=== PATIENT | male | born 1975 | race Hispanic/Latino ===

== ENCOUNTER → 2018-01-13 | Outpatient (CLI) | payer BC ==
[~2018-01-13] MED LIST: TADALAFIL
--- NOTE | 2018-01-13 22:39 | Diagnostic Imaging Report ---
Examination: MRI SPINE CERVICAL WITHOUT CONTRAST History: Right shoulder pain and numbness. Comparison studies: None Technique: Sagittal T1, T2 and IR, axial T2 and axial gradient echo intravenous contrast: None Findings: Alignment: Straightening of normal lordosis. No scoliosis. Cervicomedullary junction: No abnormalities. Patent foramen magnum. Soft tissues: No T2 hyperintense inflammatory changes. Spinal cord: Normal in size and signal from the foramen magnum through T1. Vertebrae: No fractures, infection or neoplasm. Type II Modic changes of the inferior and superior endplates of C6 and C7, respectively. Degenerative changes: C1-C2: No abnormalities. C2-C3: No abnormalities. C3-C4: No abnormalities. C4-C5: Diffuse disc osteophyte complex and bilateral uncovertebral arthropathy results in mild bilateral neural foraminal narrowing. No canal stenosis.. C5-C6: Asymmetric left disc osteophyte complex and left uncovertebral arthropathy results in mild left neural foraminal narrowing. No right foraminal or canal stenosis. C6-C7: Diffuse disc osteophyte complex and bilateral uncovertebral arthropathy result in moderate bilateral neural foraminal narrowing and mild canal stenosis. C7-T1: Right facet arthropathy results in mild right neural foraminal narrowing. Diffuse disc osteophyte complex. No left foraminal or canal stenosis. 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 Signed by: Dr. Luanne Hooper M.D. on 01/13/2018 10:35 PM
== END ==
LOC: MRI 10:31
PROVIDERS: ATTEND Family Medicine
DX: R20.2 Paresthesia of skin (principal); R29.898 Other symptoms and signs involving the musculoskeletal system; M54.13 Radiculopathy, cervicothoracic region
CPT/HCPCS: 72141